=== PATIENT | male | born 1980 | race African-American/Black ===

== ENCOUNTER 2017-12-11 12:55 | Emergency (ER) | payer OTHER ==
[2017-12-11 13:22] VITALS: BP 132/87
[2017-12-11] MEDS ORDERED: KETOROLAC TROMETHAMINE INJ/PF 30 MG/1 ML SDV IM ONE (13:56)
[2017-12-11] MEDS ORDERED: DEXAMETHASONE SOD PHOS INJ 10 MG/1 ML VIAL IM ONE (13:56)
--- NOTE | 2017-12-11 14:24 | ER Document Report ---
ED Neck/Back Problem - General Chief Complaint: Back Pain Stated Complaint: BACK PAIN Time Seen by Provider: 12/11/17 13:44 Mode of Arrival: Ambulatory Information source: Patient Notes: 37-year-old male presents to ED for complaint of low back pain. He states the pain started on after he picked up a heavy piece of furniture at work. He denies any loss of control of bowel or bladder. Denies any urinary symptoms. He is able to ambulate with a even steady gait. He is alert and oriented pupils equal and react to light speaking in full even sentences. TRAVEL OUTSIDE OF THE [place] IN LAST 30 DAYS: No - HPI Patient complains to provider of: Lower back Onset: Last week Where: Work - Onset: Sudden Timing: Still present Quality of pain: Achy, Sharp Severity: Severe Pain Level: 5 Context: Lifting Recent injury: Possibly Associated symptoms: Like prior neck/back pain, Lower back pain. denies: Incontinence, Motor loss, Numbness/tingling, Radiation to arm, Radiation to chest, Radiation to leg, Sensory loss, Unable to urinate, Upper back pain Exacerbated by: Movement of trunk, Sitting position Relieved by: Nothing Similar symptoms previously: Yes Recently seen / treated by doctor: No - Related Data Allergies/Adverse Reactions: No Known Allergies Allergy (Verified 12/11/17 12:58) Past Medical History - General Information source: Patient - Social History Smoking Status: Current Every Day Smoker Cigarette use (# per day): Yes - 6 or 7 cigarettes a day Chew tobacco use (# tins/day): No Smoking Education Provided: Yes - 4 min Frequency of alcohol use: Heavy - 6 pack a day Drug Abuse: Marijuana Lives with: Friend Family History: Reviewed & Not Pertinent Patient has suicidal ideation: No Patient has homicidal ideation: No - Past Medical History Cardiac Medical History: Reports: None Pulmonary Medical History: Reports: None EENT Medical History: Reports: None Neurological Medical History: Reports: None Endocrine Medical History: Reports: None Renal/ Medical History: Reports: None Malignancy Medical History: Reports None GI Medical History: Reports: None Musculoskeltal Medical History: Reports None Skin Medical History: Reports None Psychiatric Medical History: Reports: None Traumatic Medical History: Reports: None Infectious Medical History: Reports: None Surgical Hx: Negative Past Surgical History: Reports: None - Immunizations Immunizations up to date: Yes Hx Diphtheria, Pertussis, Tetanus Vaccination: Yes Review of Systems - Review of Systems Constitutional: No symptoms reported EENT: No symptoms reported Cardiovascular: No symptoms reported Respiratory: No symptoms reported Gastrointestinal: No symptoms reported Genitourinary: No symptoms reported Male Genitourinary: No symptoms reported Musculoskeletal: Back pain, Muscle pain, Muscle stiffness Skin: No symptoms reported Hematologic/Lymphatic: No symptoms reported Neurological/Psychological: No symptoms reported -: Yes All other systems reviewed and negative Physical Exam - Vital signs Vitals: Temp Pulse Resp BP Pulse Ox 98.7 F 93 14 132/87 H 96 12/11/17 13:18 12/11/17 13:18 12/11/17 13:18 12/11/17 13:18 12/11/17 13:18 Interpretation: Normal - General General appearance: Appears well, Alert - HEENT Head: Normocephalic, Atraumatic Eyes: Normal Pupils: PERRL - Respiratory Respiratory status: No respiratory distress Chest status: Nontender Breath sounds: Normal Chest palpation: Normal - Cardiovascular Rhythm: Regular Heart sounds: Normal auscultation Murmur: No - Abdominal Inspection: Normal Distension: No distension Bowel sounds: Normal Tenderness: Nontender Organomegaly: No organomegaly - Back Back: Normal, Tender, Vertebra tenderness. No: Deformity/step-off, CVA tenderness, Scars, Scoliosis, Wounds - Extremities General upper extremity: Normal inspection, Nontender, Normal color, Normal ROM , Normal temperature General lower extremity: Normal inspection, Nontender, Normal color, Normal ROM , Normal temperature, Normal weight bearing. No: Angela's sign - Neurological Neuro grossly intact: Yes Cognition: Normal Orientation: AAOx4 [place] Coma Scale Eye Opening: Spontaneous [place] Coma Scale Verbal: Oriented [place] Coma Scale Motor: Obeys Commands [place] Coma Scale Total: 15 Speech: Normal Motor strength normal: LUE, RUE, LLE, RLE Sensory: Normal - Psychological Associated symptoms: Normal affect, Normal mood - Skin Skin Temperature: Warm Skin Moisture: Dry Skin Color: Normal Course - Re-evaluation Re-evalutation: 12/11/17 14:25 After performing a Medical Screening Examination, I estimate there is LOW risk for EXPANDING OR RUPTURED ABDOMINAL AORTIC ANEURYSM, CAUDA EQUINA SYNDROME, EPIDURAL MASS LESION, or HERNIATED DISK CAUSING SEVERE SPINAL STENOSIS, thus I consider the discharge disposition reasonable. I have reevaluated this patient multiple times and no significant life threatening changes are noted. The patient and I have discussed the diagnosis and risks, and we agree with discharging home and close follow-up. We also discussed returning to the Emergency Department immediately if new or worsening symptoms occur with the understanding that symptoms and presentations can change. We have discussed the symptoms which are most concerning (e.g., saddle anesthesia, urinary or bowel incontinence or retention, changing or worsening pain) that necessitate immediate return. - Vital Signs Vital signs: Temp Pulse Resp BP Pulse Ox 98.7 F 93 14 132/87 H 96 12/11/17 13:18 12/11/17 13:18 12/11/17 13:18 12/11/17 13:18 12/11/17 13:18 - Diagnostic Test Radiology reviewed: Image reviewed, Reports reviewed Discharge - Discharge Clinical Impression: Low back pain Qualifiers: Chronicity: acute Back pain laterality: bilateral Sciatica presence: without sciatica Qualified Code(s): M54.5 - Low back pain HTN (hypertension) Qualifiers: Hypertension type: unspecified Qualified Code(s): I10 - Essential (primary) hypertension Condition: Stable Disposition: HOME, SELF-CARE Instructions: Family Physicians / Practices Additional Instructions: LOW BACK PAIN: Three out of every four people will have an episode of disabling back pain during their lifetime. Most commonly the pain is due to straining of the muscles and ligaments in the low back. Usual treatment includes: (1) Rest on a firm surface. Avoid lying on your stomach. (2) Ice pack the painful area. After a few days, gentle heat may be used intermittently to relax the area, or ice packs can be continued. (3) Medication may be needed -- muscle relaxers and antiinflammatory medicines are commonly used. (4) As the back improves, exercises are prescribed to strengthen the back and abdominal muscles. Your doctor will advise you on the proper care for your back at each stage in your recovery. You may be better in a few days -- or healing may take several weeks. If new symptoms of a "herniated disc" (radiation of pain, numbness, or tingling down the back of the leg or weakness in the leg) occur, you should be re-examined. Further testing may be necessary. Toradol Injection You have been given an injection of ketorolac tromethamine (Toradol). This is an excellent, safe drug for pain control. It also has potent antiinflammatory action. You should have significant pain relief within about one hour. Toradol is not addicting and is non-sedating. It does not interfere with driving or work. Call or return if you develop itching, hives, shortness of breath, or rash. STEROID MEDICATION: You have been given an injection of medicine of the cortisone/steroid class. This medication is used to control inflammation or allergy. It is often continued as a pill for a short period of time, until the acute process subsides. There are usually no side effects from short-term use of cortisone-like medications. Some persons feel an increased sense of well-being and are not sleepy at bedtime. Long-term use of cortisone medications is best avoided, unless required for a severe condition. If your condition does not remit, or relapses after the course of corticosteroid medication, you should consult your physician. MUSCLE RELAXERS: Muscle relaxing medications are usually prescribed for acute muscle spasm or injury to the neck and back. They are often combined with antiinflammatory pain medication for increased relief. You may stop the muscle relaxer when the pain and stiffness have improved. Start the medication again if spasms recur. Muscle relaxers may cause drowsiness, especially with the first dose. Do not operate machinery or drive while under the effects of the medication. Most muscle relaxers last up to 24 hours. Do not combine the medication with alcohol. ICE PACKS: Apply ice packs frequently against the painful area. Many different schedules are recommended, such as "20 minutes on, 20 minutes off" or "one hour ice, two hours rest." If you need to work, you may need to go longer between ice treatments. You should plan to have the area ice packed AT LEAST one fourth of the time. The ice should be applied over the wrap, tape, or splint, or over a layer of cloth -- not directly against the skin. Some ice bags have a built-in cloth and can be put directly on the skin. WARM PACKS: After approximately two days, apply gentle heat (such as a heating pad or hot water bottle) for about 20 to 30 minutes about every two hours -- at least four times daily. Warmth and elevation will help you make a more rapid recovery , and will ease the pain considerably. Do not use HOT heat, and never apply heat for longer than 30 minutes. The continuous heat can invisibly damage skin and muscles -- even when no burn is seen on the surface. Damaged muscles can make you MORE sore. Stretching Exercises for the Back The physician has recommended that you begin stretching exercises for your back. These are often used even while the back is painful. However, you should notify the physician if the activities seem to increase your pain. PELVIC TILT: Lie flat on your back with knees bent. Tighten your stomach and buttock muscles so it flattens your lower back against the floor. Hold 10 seconds. Repeat 10 times, twice daily. KNEE RAISE: Lying on the back with knees bent, raise one knee to your chest, then the other. Hold both knees against the chest 10 seconds, then lower one knee at a time. Repeat 10 times, twice daily. PARTIAL TRUNK RAISE: Lie face down, arms at your sides. Keeping your waist on the floor, use your arms raise your chest up. Support yourself on your elbows for 30 seconds. Repeat twice daily, increasing the time to two minutes as you recover. FOLLOW-UP CARE: If you have been referred to a physician for follow-up care, call the physician s office for an appointment as you were instructed or within the next two days. If you experience worsening or a significant change in your symptoms, notify the physician immediately or return to the Emergency Department at any time for re-evaluation. Prescriptions: Cyclobenzaprine HCl [Flexeril 10 mg Tablet] 10 mg PO TIDP PRN #15 tab PRN Reason: Forms: Elevated Blood Pressure, Smoking Cessation Education, Return to Work
--- NOTE | 2017-12-11 14:27 | RADIOLOGY REPORT (SQ) ---
EXAM DESCRIPTION: L SPINE WHOLE COMPLETED DATE/TIME: 12/11/2017 2:15 pm REASON FOR STUDY: low back pain COMPARISON: None. NUMBER OF VIEWS: Five views including obliques. TECHNIQUE: AP, lateral, oblique, and sacral radiographic images acquired of the lumbar spine. LIMITATIONS: None. FINDINGS: MINERALIZATION: Normal. SEGMENTATION: Normal. No transitional anatomy. ALIGNMENT: Very mild convex leftward lumbar curvature VERTEBRAE: Maintained height. No fracture or worrisome bone lesion. DISCS: Preserved height. No significant osteophytes or end plate irregularity. POSTERIOR ELEMENTS: Pedicles and facets are intact. No pars defect or posterior arch defects. Mild bilateral facet arthropathy at L5-S1 HARDWARE: None in the spine. PARASPINAL SOFT TISSUES: Normal. PELVIS: Not in the field of view. SI joints are unremarkable OTHER: No other significant finding. IMPRESSION: L5-S1 facet arthropathy. TECHNICAL DOCUMENTATION: JOB ID: [id number] [employer]- All Rights Reserved Reading location - IP/workstation name: [email or web address]
== END 2017-12-11 15:09 | disposition home or self-care (01) ==
LOC: ER 12:55
DX: M54.5 Low back pain (principal); X50.0XXA Overexertion from strenuous movement or load, initial encounter; Y99.0 Civilian activity done for income or pay; I10 Essential (primary) hypertension; F17.210 Nicotine dependence, cigarettes, uncomplicated; Z71.6 Tobacco abuse counseling
CPT/HCPCS: 99283; 96372; 72110; J1885; J1100

== ENCOUNTER 2018-04-04 16:58 | Emergency (ER) | payer OTHER ==
[2018-04-04] MEDS ORDERED: NORMAL SALINE 1000 ML 1,000 ML IV ONE (17:56)
[2018-04-04] MEDS ORDERED: PANTOPRAZOLE SODIUM 40 MG VIAL IV ONE (17:56)
--- NOTE | 2018-04-04 19:19 | ER Document Report ---
ED General - General Chief Complaint: Bloody Stools Stated Complaint: ABDOMEN PAIN Time Seen by Provider: 04/04/18 17:55 TRAVEL OUTSIDE OF THE [place] IN LAST 30 DAYS: No - HPI Notes: 37-year-old male presents with blood in stools for the past 3 days. He states it is dark blood. He has had upper abdominal pain. He admits to drinking about a sixpack of beers a day. Denies history of ulcers. Has had hemorrhoids in the past with bleeding in July. Denies prior colonoscopy or endoscopy. Denies excessive NSAID use. Was seen at the [place] today and sent to the emergency department for further evaluation. Denies nausea, vomiting, fever, lightheadedness or syncopal episodes. - Related Data Allergies/Adverse Reactions: No Known Allergies Allergy (Verified 04/04/18 16:58) Past Medical History - Social History Smoking Status: Current Every Day Smoker Frequency of alcohol use: daily Drug Abuse: None Family History: Reviewed & Not Pertinent Patient has suicidal ideation: No Patient has homicidal ideation: No Renal/ Medical History: Denies: Hx Peritoneal Dialysis - Immunizations Immunizations up to date: Yes Hx Diphtheria, Pertussis, Tetanus Vaccination: Yes Review of Systems - Review of Systems Notes: Constitutional: Negative for fever. HENT: Negative for sore throat. Eyes: Negative for visual changes. Cardiovascular: Negative for chest pain. Respiratory: Negative for shortness of breath. Gastrointestinal: Positive for abdominal pain and rectal bleeding. Negative for nausea, vomiting, diarrhea Genitourinary: Negative for dysuria. Musculoskeletal: Negative for back pain. Skin: Negative for rash. Neurological: Negative for headaches, weakness or numbness. 10 point ROS negative except as marked above and in HPI. Physical Exam - Vital signs Vitals: Temp Pulse Resp BP Pulse Ox 98.0 F 81 14 119/72 100 04/04/18 17:05 04/04/18 17:05 04/04/18 17:05 04/04/18 17:04/04/18 17:05 - Notes Notes: PHYSICAL EXAMINATION: GENERAL: Well-appearing, well-nourished and in no acute distress. HEAD: Atraumatic, normocephalic. EYES: Pupils equal round and reactive to light, extraocular movements intact, conjunctiva are normal. ENT: nares patent, oropharynx clear without exudates. Moist mucous membranes. NECK: Normal range of motion, supple without lymphadenopathy LUNGS: Breath sounds clear to auscultation bilaterally and equal. No wheezes rales or rhonchi. HEART: Regular rate and rhythm, no chest wall tenderness ABDOMEN: Soft, mild left upper and lower quadrant tenderness, normoactive bowel sounds. No guarding, no rebound. No masses appreciated. EXTREMITIES: Normal range of motion, no pitting or edema. No cyanosis. NEUROLOGICAL: Cranial nerves grossly intact. Normal speech, normal gait. Normal sensory and motor exams. PSYCH: Normal mood, normal affect. SKIN: Warm, Dry, normal turgor, no rashes or lesions noted. - Rectal Tenderness: Yes Stool: Heme negative Hemorrhoids: Internal Prostate: Normal Course - Re-evaluation Re-evalutation: 04/04/18 22:05 Hemoccult negative. Labs unremarkable with mild anemia. Advised to avoid alcohol. Will place on Nexium. At this time will discharge with return precautions and follow-up recommendations. Verbal discharge instructions given a the bedside and opportunity for questions given. Medication warnings reviewed. Patient is in agreement with this plan and has verbalized understanding of return precautions and the need for primary care follow-up in the next 24-72 hours. Voice dictation software was used. Chart was reviewed, but errors may exist. - Vital Signs Vital signs: Temp Pulse Resp BP Pulse Ox 98.0 F 81 14 119/72 100 04/04/18 17:05 04/04/18 17:05 04/04/18 17:05 04/04/18 17:05 04/04/18 17:05 - Laboratory Result Diagrams: 04/04/18 19:41 04/04/18 19:41 Laboratory results interpreted by me: 04/04/18 04/04/18 19:41 19:41 Hgb 13.3 L Total Protein 8.3 H Discharge - Discharge Clinical Impression: Rectal bleed Hemorrhoid Qualifiers: Hemorrhoid type: unspecified Qualified Code(s): K64.9 - Unspecified hemorrhoids Condition: Stable Disposition: HOME, SELF-CARE Instructions: Hemorrhoids ([facility]), Rectal Bleeding, Unclear Cause ([facility]) Additional Instructions: Avoid alcohol and NSAIDs as this will worsen your bleeding. Follow-up with GI for further evaluation. Return for worsening or concerning symptoms. Prescriptions: Esomeprazole Mag Trihydrate [Nexium] 40 mg PO DAILY #20 capsule. Hydrocortisone Acetate [Anusol Hc 25 mg Supp.rect] 1 supp.rect NE BID #14 supp.rect Referrals: KATIA RODRÍGUEZ NP [Primary Care Provider] - Follow up in 3-5 days RUTH KC MD [ACTIVE STAFF] - Follow up as needed
[2018-04-04 20:08] LABS: HEMATOCRIT 39.1 % (37.9-51.0); HEMOGLOBIN 13.3 g/dL (13.5-17.0); MEAN CORPUSCULAR HEMOGLOBIN 29.6 pg (27.0-33.4); MEAN CORPUSCULAR HGB CONC 34.1 g/dL (32.0-36.0); MEAN CORPUSCULAR VOLUME 87 fl (80-97); PLATELET COUNT 267 10^3/uL (150-450); RED BLOOD COUNT 4.49 10^6/uL (4.35-5.55); RED CELL DISTRIBUTION WIDTH 12.8 % (11.5-14.0)
[2018-04-04 20:23] LABS: ALANINE AMINOTRANSFERASE 31 U/L (21-72); ALBUMIN 4.7 g/dL (3.5-5.0); ALCOHOL 221 mg/dL (NONE DETECTED); ALKALINE PHOSPHATASE 56 U/L (38-126); ANION GAP 11 (5-19); ASPARTATE AMINO TRANSFERASE 57 U/L (17-59); BILIRUBIN,DIRECT 0.3 mg/dL (0.0-0.4); BILIRUBIN,TOTAL 0.5 mg/dL (0.2-1.3); BLOOD UREA NITROGEN 9 mg/dL (7-20); CALCIUM 9.2 mg/dL (8.4-10.2); CARBON DIOXIDE 26 mmol/L (22-30); CHLORIDE 106 mmol/L (98-107); GLUCOSE 95 mg/dL (75-110); LIPASE 57.4 U/L (23-300); POTASSIUM 4.6 mmol/L (3.6-5.0); SODIUM 142.9 mmol/L (137-145); TOTAL PROTEIN 8.3 g/dL (6.3-8.2)
[2018-04-04 20:27] LABS: ABSOLUTE LYMPHOCYTES# (MANUAL) 2.5 10^3/uL (0.5-4.7); ABSOLUTE MONOCYTES # (MANUAL) 0.5 10^3/uL (0.1-1.4); ABSOLUTE NEUTROPHILS# (MANUAL) 2.8 10^3/uL (1.7-8.2); BASOPHILS % (MANUAL) 2 % (0-2); EOSINOPHILS % (MANUAL) 2 % (0-6); LYMPHOCYTES % (MANUAL) 38 % (13-45); MONOCYTES % (MANUAL) 8 % (3-13); SEGMENTED NEUTROPHILS % (MAN) 46 % (42-78); TOTAL CELLS COUNTED 100
[2018-04-04 20:28] LABS: PLATELET COMMENT ADEQUATE; RBC MORPHOLOGY COMMENT NORMO-CYTIC/CHROMIC
[2018-04-04 22:08] VITALS: BP 114/77
== END 2018-04-04 22:49 | disposition home or self-care (01) ==
LOC: ER 16:58
DX: K62.5 Hemorrhage of anus and rectum (principal); K64.9 Unspecified hemorrhoids; D64.9 Anemia, unspecified; R10.10 Upper abdominal pain, unspecified; F17.200 Nicotine dependence, unspecified, uncomplicated
CPT/HCPCS: 99285; 96361; 96374; 86900; 86901; 36415; 86850; 80307; 83690; 85025; 82272; 80053; S0164; J7030

== ENCOUNTER 2018-04-17 10:19 | Emergency (ER) | payer OTHER ==
[2018-04-17] MEDS ORDERED: CEFTRIAXONE 2 GM/D5W RTU 2 GM/50 ML RTUPB IV ONE (10:38)
[2018-04-17] MEDS ORDERED: NORMAL SALINE 1000 ML 1,000 ML IV ONE (10:38)
[2018-04-17] MEDS ORDERED: NORMAL SALINE 1000 ML 1,000 ML IV PRN (10:38)
[2018-04-17] MEDS ORDERED: KETOROLAC TROMETHAMINE INJ/PF 30 MG/1 ML SDV IV ONE (10:38)
--- NOTE | 2018-04-17 10:41 | ER Document Report ---
ED Medical Screen (RME) - General Chief Complaint: Arm Pain Stated Complaint: RIGHT ARM PAIN, SWELLING Time Seen by Provider: 04/17/18 10:37 Notes: 37 years old male who woke up with right arm swelling and pain. Before he went to bed he did not have any symptoms according to him. But he was drinking beer yesterday. Denies any numbness tingling sensation. But has diffuse pain over both upper arm and forearm and elbow. Had difficulty in flexing and extending the elbow. Denies any known insect bites. On examination right arm the swelling starts junction of the upper one third and lower two third of the arm extending all the way to the elbow to the proximal portion of the forearm two third of the way. The entire arm is very warm and tender to touch. There is a small opening noted on the lateral side of the forearm. Neurovascular function distally appeared to be intact. TRAVEL OUTSIDE OF THE [place] IN LAST 30 DAYS: No - Related Data Allergies/Adverse Reactions: No Known Allergies Allergy (Verified 04/17/18 10:20) Past Medical History - Social History Chew tobacco use (# tins/day): No Frequency of alcohol use: Heavy Drug Abuse: None Renal/ Medical History: Denies: Hx Peritoneal Dialysis Psychiatric Medical History: Reports: Hx Depression - Immunizations Immunizations up to date: Yes Hx Diphtheria, Pertussis, Tetanus Vaccination: Yes Physical Exam - Vital signs Vitals: Temp Pulse Resp BP Pulse Ox 98.6 F 100 16 123/83 97 04/17/18 10:24 04/17/18 10:24 04/17/18 10:24 04/17/18 10:24 04/17/18 10:24 Course - Vital Signs Vital signs: Temp Pulse Resp BP Pulse Ox 98.6 F 100 16 123/83 97 04/17/18 10:24 04/17/18 10:24 04/17/18 10:24 04/17/18 10:24 04/17/18 10:24 Doctor's Discharge - Discharge Referrals: KATIA RODRÍGUEZ NP [Primary Care Provider] - Follow up as needed
[2018-04-17 11:37] LABS: ABSOLUTE EOSINOPHILS # (AUTO) 0.1 10^3/uL (0.0-0.6); ABSOLUTE LYMPHOCYTES (AUTO) 1.1 10^3/uL (0.5-4.7); ABSOLUTE MONOCYTES (AUTO) 0.7 10^3/uL (0.1-1.4); ABSOLUTE NEUT (AUTO) 7.1 10^3/uL (1.7-8.2); BASOPHILS % (AUTO) 0.3 % (0-2); EOSINOPHILS % (AUTO) 1.3 % (0-6); HEMATOCRIT 41.5 % (37.9-51.0); HEMOGLOBIN 14.3 g/dL (13.5-17.0); LYMPHOCYTES % (AUTO) 11.6 % (13-45); MEAN CORPUSCULAR HEMOGLOBIN 29.9 pg (27.0-33.4); MEAN CORPUSCULAR HGB CONC 34.6 g/dL (32.0-36.0); MEAN CORPUSCULAR VOLUME 86 fl (80-97); MONOCYTES % (AUTO) 8.1 % (3-13); PLATELET COUNT 225 10^3/uL (150-450); RED CELL DISTRIBUTION WIDTH 12.6 % (11.5-14.0); SEGMENTED NEUTROPHILS % (AUTO) 78.7 % (42-78); TOTAL CELLS COUNTED % (AUTO) 100 %; WHITE BLOOD COUNT 9.1 10^3/uL (4.0-10.5)
[2018-04-17] MEDS ORDERED: CEFTRIAXONE SODIUM 2,000 MG in NORMAL SALINE 100 ML IV ONE (12:00)
[2018-04-17 12:23] LABS: ERYTHROCYTE SEDIMENTATION RATE 2 mm/hr (0-15)
[2018-04-17 12:34] LABS: ALANINE AMINOTRANSFERASE 32 U/L (21-72); ALBUMIN 4.9 g/dL (3.5-5.0); ALKALINE PHOSPHATASE 68 U/L (38-126); ANION GAP 11 (5-19); ASPARTATE AMINO TRANSFERASE 42 U/L (17-59); BILIRUBIN,DIRECT 0.5 mg/dL (0.0-0.4); BILIRUBIN,TOTAL 0.8 mg/dL (0.2-1.3); BLOOD UREA NITROGEN 14 mg/dL (7-20); CALCIUM 9.5 mg/dL (8.4-10.2); CARBON DIOXIDE 24 mmol/L (22-30); CHLORIDE 107 mmol/L (98-107); GLUCOSE 85 mg/dL (75-110); POTASSIUM 4.3 mmol/L (3.6-5.0); SODIUM 141.8 mmol/L (137-145); TOTAL PROTEIN 8.6 g/dL (6.3-8.2)
[2018-04-17 12:35] LABS: C-REACTIVE PROTEIN < 5.0 mg/L (<10.0)
[2018-04-17] MEDS ORDERED: METHYLPREDNISOLONE INJ 125 MG/2 ML SDV IV ONE (16:30)
--- NOTE | 2018-04-17 19:21 | ER Document Report ---
ED General - General Chief Complaint: Arm Pain Stated Complaint: RIGHT ARM PAIN, SWELLING Time Seen by Provider: 04/17/18 10:37 Mode of Arrival: Ambulatory Information source: Patient, Relative Notes: 37-year-old male with depression presents with complaint of right arm pain and swelling that began this morning. Patient states that he went to bed last night without any issues and awoke with a very swollen very painful arm. He denies any known injury. His presented 10 minutes after I spoke to the patient and tells me that the patient was drinking heavily last night and fell off the bed where she left him on the floor until the morning. She states that he did land onto his right side. Patient denies any headache, nausea, vomiting , IV drug use, recent IV insertion. also states that they both were bitten by yellow jackets multiple times in the upper extremity yesterday. TRAVEL OUTSIDE OF THE [place] IN LAST 30 DAYS: No - HPI Onset: This morning Onset/Duration: Gradual, Persistent, Worse Quality of pain: Fullness, Throbbing Severity: Moderate Associated symptoms: denies: Chest pain, Productive cough, Fever, Nausea, Vomiting, Shortness of breath, Weakness Exacerbated by: Movement Relieved by: Denies Similar symptoms previously: No Recently seen / treated by doctor: No - Related Data Allergies/Adverse Reactions: No Known Allergies Allergy (Verified 04/17/18 10:20) Past Medical History - General Information source: Patient - Social History Smoking Status: Current Every Day Smoker Chew tobacco use (# tins/day): No Frequency of alcohol use: Heavy Drug Abuse: None Lives with: Spouse/Significant other Family History: Reviewed & Not Pertinent Patient has suicidal ideation: No Patient has homicidal ideation: No Renal/ Medical History: Denies: Hx Peritoneal Dialysis Psychiatric Medical History: Reports: Hx Depression - Immunizations Immunizations up to date: Yes Hx Diphtheria, Pertussis, Tetanus Vaccination: Yes Review of Systems - Review of Systems Notes: REVIEW OF SYSTEMS: CONSTITUTIONAL : Denies fever, chills, or sweats. Denies recent illness. Denies weight loss, recent hospitalizations. EENT: Denies visual changes, eye pain. Denies sore throat, oral lesions, difficulty swallowing. CARDIOVASCULAR: Denies chest pain. Denies palpitations. Denies lower extremity edema. RESPIRATORY: Denies cough. Denies shortness of breath, wheezing. GASTROINTESTINAL: Denies abdominal pain or distention. Denies nausea, vomiting , or diarrhea. Denies blood in vomitus, stools, or per rectum. Denies black, tarry stools. Denies constipation. GENITOURINARY: Denies difficulty urinating, painful urination, frequency, blood in urine, testicular pain or penile discharge. MUSCULOSKELETAL: Denies back or neck pain or stiffness. SKIN: Denies rash, lesions or sores. HEMATOLOGIC : Denies easy bruising or bleeding. LYMPHATIC: Denies swollen glands. NEUROLOGICAL: Denies confusion or altered mental status. Denies loss of consciousness. Denies dizziness or lightheadedness. Denies headache. Denies weakness or paralysis. Denies problems difficulty with ambulation, slurred speech. Denies sensory loss, numbness, or tingling. Denies seizures. PSYCHIATRIC: Denies anxiety or stress. Denies depression, suicidal ideation, or Physical Exam - Vital signs Vitals: Temp Pulse Resp BP Pulse Ox 98.6 F 100 16 123/83 97 04/17/18 10:24 04/17/18 10:24 04/17/18 10:24 04/17/18 10:24 04/17/18 10:24 Interpretation: Normal. No: Hypertensive, Febrile - Notes Notes: PHYSICAL EXAMINATION: GENERAL: Well-appearing, well-nourished and in no acute distress. HEAD: Atraumatic, normocephalic. EYES: Pupils equal round and reactive to light, extraocular movements intact, sclera anicteric, conjunctiva are normal. ENT: Nares patent, oropharynx clear without exudates. Moist mucous membranes. NECK: Normal range of motion, supple without lymphadenopathy LUNGS: Breath sounds clear to auscultation bilaterally and equal. No wheezes rales or rhonchi. HEART: Regular rate and rhythm without murmurs ABDOMEN: Soft, nontender, nondistended abdomen. No guarding, no rebound. No masses appreciated. Musculoskeletal: Swelling of the right forearm and right bicep. Compartment soft. Radial pulse intact. Cap refill less than 2 seconds. No obvious deformity. NEUROLOGICAL: Cranial nerves grossly intact. Normal speech, normal gait. Normal sensory, motor exams PSYCH: Normal mood, normal affect. SKIN: Mild erythema to the upper extremity Course - Re-evaluation Re-evalutation: Laboratory 04/17/18 04/17/18 04/17/18 11:12 11:12 11:12 WBC 9.1 RBC 4.80 Hgb 14.3 Hct 41.5 MCV 86 MCH 29.9 MCHC 34.6 RDW 12.6 Plt Count 225 Seg Neutrophils % 78.7 H Lymphocytes % 11.6 L Monocytes % 8.1 Eosinophils % 1.3 Basophils % 0.3 Absolute Neutrophils 7.1 Absolute Lymphocytes 1.1 Absolute Monocytes 0.7 Absolute Eosinophils 0.1 Absolute Basophils 0.0 ESR 2 D-Dimer 0.42 Sodium 141.8 Potassium 4.3 Chloride 107 Carbon Dioxide 24 Anion Gap 11 BUN 14 Creatinine 0.84 Est GFR ( Amer) > 60 Est GFR (Non-Af Amer) > 60 Glucose 85 Lactic Acid Calcium 9.5 Total Bilirubin 0.8 Direct Bilirubin 0.5 H Neonat Total Bilirubin Not Reportable Neonat Direct Bilirubin Not Reportable Neonat Indirect Bili Not Reportable AST 42 ALT 32 Alkaline Phosphatase 68 Creatine Kinase C-Reactive Protein < 5.0 Total Protein 8.6 H Albumin 4.9 04/17/18 04/17/18 04/17/18 11:12 11:12 20:53 WBC RBC Hgb Hct MCV MCH MCHC RDW Plt Count Seg Neutrophils % Lymphocytes % Monocytes % Eosinophils % Basophils % Absolute Neutrophils Absolute Lymphocytes Absolute Monocytes Absolute Eosinophils Absolute Basophils ESR D-Dimer Sodium Potassium Chloride Carbon Dioxide Anion Gap BUN Creatinine Est GFR ( Amer) Est GFR (Non-Af Amer) Glucose Lactic Acid 1.2 Calcium Total Bilirubin Direct Bilirubin Neonat Total Bilirubin Neonat Direct Bilirubin Neonat Indirect Bili AST ALT Alkaline Phosphatase Creatine Kinase 514 H 425 H C-Reactive Protein Total Protein Albumin Venous Doppler Study 04/17/18 00:00 IMPRESSION: NO EVIDENCE DVT OR SVT RIGHT ARM. Upper Extremity CT 04/17/18 17:34 IMPRESSION: Arterial flow is seen to the wrist. There is marked subcutaneous edema. Upper Extremity Ultrasound 04/17/18 17:36 IMPRESSION: NORMAL RIGHT UPPER EXTREMITY ARTERIAL DOPPLER. Forearm X-Ray 04/17/18 17:42 IMPRESSION: Marked soft tissue swelling. No osseous abnormality. Shoulder X-Ray 04/17/18 17:42 IMPRESSION: NEGATIVE STUDY OF THE RIGHT SHOULDER. NO RADIOGRAPHIC EVIDENCE OF ACUTE INJURY. 04/17/18 19:[address] Young orthopedic surgeon snuff container inspector regarding the patient's unusual presentation of arm swelling. We did discuss negative ultrasound, negative x-rays. He recommends if CAT scan is normal to have patient follow up immediately in his office tomorrow. 04/17/18 23:40 04/17/18 23:40 I spoke at length with the patient and his regarding the importance of follow-up with orthopedic surgery tomorrow.37-year-old male with history of depression presents with complaint of right arm pain and swelling that began this morning. states that the patient was heavily drinking and fell out of bed onto his right side where she left him overnight. Upon arrival vital signs stable. Patient does not appear toxic or dehydrated. He is in no acute distress. There is market swelling of the right arm when compared to the left. Ultrasound was obtained and negative for DVT. X-rays of the forearm and shoulder were also obtained and showed no acute injury. Forearm did show marketed soft tissue swelling. Patient has full range of motion of this arm. He does have some mild erythema on the inner upper extremity. I will continue the antibiotics that were started in triage. Patient did receive Dilaudid during his ED course. Lab and imaging findings were discussed with the patient and his . Patient was found to have a mildly elevated CK level which on repeat is downtrending. His compartments remain soft. I urged the patient and his that he should be seen by orthopedic surgery tomorrow or return immediately to the emergency room if pain worsened. Patient provided the opportunity to ask questions, and express concerns. Discharge instructions discussed. Patient is agreeable with discharge home. Return indications explained and discussed with the patient who displays understanding. Patient encouraged to return to the emergency department immediately with any concerns. 04/18/18 01:26 04/18/18 01:26 - Vital Signs Vital signs: Temp Pulse Resp BP Pulse Ox 97.7 F 73 18 134/79 H 92 04/17/18 23:41 04/17/18 23:41 04/17/18 23:41 04/17/18 23:41 04/17/18 23:41 - Laboratory Result Diagrams: 04/17/18 11:12 04/17/18 11:12 Laboratory results interpreted by me: 04/17/18 04/17/18 04/17/18 11:12 11:12 11:12 Seg Neutrophils % 78.7 H Lymphocytes % 11.6 L Direct Bilirubin 0.5 H Creatine Kinase 514 H Total Protein 8.6 H 04/17/18 20:53 Seg Neutrophils % Lymphocytes % Direct Bilirubin Creatine Kinase 425 H Total Protein - Diagnostic Test Radiology reviewed: Image reviewed, Reports reviewed Discharge - Discharge Clinical Impression: Swelling of upper extremity, Elevated CK Allergic reaction Qualifiers: Encounter type: initial encounter Qualified Code(s): T78.40XA - Allergy, unspecified, initial encounter Cellulitis Qualifiers: Site of cellulitis: extremity Site of cellulitis of extremity: upper extremity Laterality: right Qualified Code(s): L03.113 - Cellulitis of right upper limb Condition: Good Disposition: HOME, SELF-CARE Instructions: Arm Pain, Nonspecific ([facility]), Cellulitis ([facility]) Additional Instructions: You do not have evidence of a fracture on today's xrays. Your pain is likely to do soft tissue swelling and inflammation. This can last up to 6 weeks before completely resolving. You should continue to apply ice to the area regularly, keep the affected area elevated, and take ibuprofen 600mg every 6 hours as needed for pain. Please return if you have worsening pain, weakness, numbness, notice increasing redness or swelling to the area, develop a fever, or have any other symptoms that are concerning to you. Please complete your antibiotic course and follow-up with orthopedic surgeon Dr. Young tomorrow. Most prescribed medications have multiple side effects. The safest thing to do is when filling your prescription please speak to your pharmacist regarding possible interactions with your normal home medications and over the counter medications such as Ibuprofen, Tylenol, Benadryl.. If you experience any symptoms that cause you discomfort or concern you should discontinue the medication immediately and return to the emergency room or call your primary care physician. Follow up with your physician tomorrow for further care or return to the ED IMMEDIATELY if symptoms worsen or new concerns occur. If you cannot afford to follow up with your primary care physician a list of low cost clinics have been provided at the end of your discharge papers as well. Prescriptions: Cephalexin Monohydrate [Keflex 500 mg Capsule] 500 mg PO BID 5 Days #20 capsule Oxycodone HCl/Acetaminophen [Percocet 5-325 mg Tablet] 1 tab PO Q6H PRN #15 tab PRN Reason: For Pain Scale 2-3 Sulfamethoxazole/Trimethoprim [Bactrim Ds Tablet] 1 each PO BID #20 tablet Referrals: KATIA RODRÍGUEZ NP [NO LOCAL MD] - Follow up as needed NORIS YOUNG DO [ACTIVE STAFF] - Follow up tomorrow
--- NOTE | 2018-04-17 19:23 | RADIOLOGY REPORT (SQ) ---
EXAM DESCRIPTION: ARTERIAL UPPER EXTREM UNILAT COMPLETED DATE/TIME: 04/17/2018 7:13 pm REASON FOR STUDY: right arm swelling COMPARISON: None. TECHNIQUE: Dynamic and static aguilar scale and color images acquired of the right upper extremity sharif saul. Additional selected spectral images recorded. Images saved to PACS. LIMITATIONS: None. FINDINGS: RIGHT UPPER EXTREMITY: Normal waveforms. No significant stenosis is seen. There is flow to the hand. IMPRESSION: NORMAL RIGHT UPPER EXTREMITY ARTERIAL DOPPLER. TECHNICAL DOCUMENTATION: JOB ID: [id number] [employer]- All Rights Reserved Reading location - IP/workstation name: [email or web address]
--- NOTE | 2018-04-17 19:24 | RADIOLOGY REPORT (SQ) ---
EXAM DESCRIPTION: FOREARM RIGHT COMPLETED DATE/TIME: 04/17/2018 7:13 pm REASON FOR STUDY: fall COMPARISON: None. NUMBER OF VIEWS: Two views. TECHNIQUE: Two radiographic images acquired of the right forearm, including elbow and wrist in at le ast one projection. LIMITATIONS: None. FINDINGS: MINERALIZATION: Normal. BONES: No acute fracture. No worrisome bone lesions. SOFT TISSUES: Marked soft tissue swelling in the proximal forearm. OTHER: No other significant finding. IMPRESSION: Marked soft tissue swelling. No osseous abnormality. TECHNICAL DOCUMENTATION: JOB ID: [id number] [employer]- All Rights Reserved Reading location - IP/workstation name: [email or web address]
--- NOTE | 2018-04-17 19:25 | RADIOLOGY REPORT (SQ) ---
EXAM DESCRIPTION: VENOUS UNILATERAL UPPER COMPLETED DATE/TIME: 04/17/2018 7:14 pm REASON FOR STUDY: UPPER ARM SWELLING COMPARISON: None. TECHNIQUE: Dynamic and static aguilar scale and color images acquired of the right arm venous system. S elected spectral images acquired with additional compression and augmentation maneuvers. The contrala teral subclavian vein and internal jugular vein were also imaged. Images stored on PACS. LIMITATIONS: None. FINDINGS: INTERNAL JUGULAR VEIN: Normal phasicity, compression, augmentation. No visualized echogeni c material on aguilar scale. No defects on color images. Comparison opposite side normal. SUBCLAVIAN VEIN: Normal compression, augmentation. No visualized echogenic material on aguilar scale. No defects on color images. AXILLARY VEIN: Normal compression, augmentation. No visualized echogenic material on aguilar scale. No d efects on color images. BRACHIAL VEIN: Normal compression, augmentation. No visualized echogenic material on aguilar scale. No d efects on color images. BASILIC VEIN: Normal compression, augmentation. No visualized echogenic material on aguilar scale. No de fects on color images. CEPHALIC VEIN: Normal compression, augmentation. No visualized echogenic material on aguilar scale. No d efects on color images. OTHER: No other significant finding. CONTRALATERAL SUBCLAVIAN VEIN AND INTERNAL JUGULAR VEIN: Normal phasicity, compression and augmentation. No visualized echogenic material on aguilar scale. No de fects on color images. IMPRESSION: NO EVIDENCE DVT OR SVT RIGHT ARM. TECHNICAL DOCUMENTATION: JOB ID: [id number] [employer]- All Rights Reserved Reading location - IP/workstation name: [email or web address]
--- NOTE | 2018-04-17 19:25 | RADIOLOGY REPORT (SQ) ---
EXAM DESCRIPTION: SHOULDER RIGHT 2 OR MORE VIEWS COMPLETED DATE/TIME: 04/17/2018 7:13 pm REASON FOR STUDY: fall COMPARISON: None. NUMBER OF VIEWS: Three views. TECHNIQUE: Internal rotation, external rotation, and Y view images acquired of the right shoulder. LIMITATIONS: None. FINDINGS: MINERALIZATION: Normal. BONES: No acute fracture or dislocation. No worrisome bone lesions. JOINTS: No dislocation. VISUALIZED LUNGS AND RIBS: No pneumothorax. No rib fracture. SOFT TISSUES: No radiopaque foreign body. OTHER: No other significant finding. IMPRESSION: NEGATIVE STUDY OF THE RIGHT SHOULDER. NO RADIOGRAPHIC EVIDENCE OF ACUTE INJURY. TECHNICAL DOCUMENTATION: JOB ID: [id number] [employer] All Rights Reserved Reading location - IP/workstation name: [email or web address]
[2018-04-17] MEDS ORDERED: HYDROMORPHONE HCL INJ/PF 2 MG/ML AMPULE IV ONE ×2 (19:35→19:37)
[2018-04-17] MEDS ORDERED: RINGERS SOLUTION,LACTATED 1,000 ML IV ONE (19:35)
--- NOTE | 2018-04-17 20:27 | RADIOLOGY REPORT (SQ) ---
EXAM DESCRIPTION: CT RT UPPER EXTREMITY WITH COMPLETED DATE/TIME: 04/17/2018 7:37 pm REASON FOR STUDY: swollen (CTA RUNOFF Per MD) COMPARISON: None. TECHNIQUE: Postcontrast axial imaging performed through the right upper extremity with reformatted c oronal and sagittal imaging windowed for bone and soft tissues. Images saved to PACS. 3D IMAGING: Were 3D images as MIP, SSD, or volume rendering performed at the work station? No All CT scanners at this facility use dose modulation, iterative reconstruction, and/or weight based d osing when appropriate to reduce radiation dose to as low as reasonably achievable (ALARA). [facility]: Dose Right [facility]: CareDose [facility]: Dose Right [facility]: Teradose 4D [facility]: BackTrack CONTRAST TYPE AND DOSE: contrast/concentration: Isovue 350.00 mg/ml; Total Contrast Delivered: 80.0 ml; Total Saline Delivered: 60.0 ml RENAL FUNCTION: BUN 14 creatinine 0.84 LIMITATIONS: None. RADIATION DOSE: CT Rad equipment meets quality standard of care and radiation dose reduction techniq ues were employed. CTDIvol: 2.7 - 30.2 mGy. DLP: 200 mGy-cm.mGy. FINDINGS: SOFT TISSUES: Marked soft tissue swelling with marked subcutaneous edema in the distal arm and the forearm. BONES: No acute fracture. No dislocation. MINERALIZATION: Normal. ENHANCEMENT: No abnormal enhancement. OTHER: Arterial flow was shown to the wrist. IMPRESSION: Arterial flow is seen to the wrist. There is marked subcutaneous edema. TECHNICAL DOCUMENTATION: JOB ID: [id number] Quality ID # [id number]: Final reports with documentation of one or more dose reduction techniques (e.g., Au tomated exposure control, adjustment of the mA and/or kV according to patient size, use of iterative reconstruction technique) 2010 [employer]- All Rights Reserved Reading location - IP/workstation name: [email or web address]
[2018-04-17] MEDS ORDERED: OXYCODONE-ACETAMINOPHEN 5-325 MG TABLET PO ONE (23:40)
[2018-04-18 00:03] VITALS: BP 134/79
== END 2018-04-17 12:50 | disposition home or self-care (01) ==
LOC: ER 10:19
DX: L03.113 Cellulitis of right upper limb (principal); R74.8 Abnormal levels of other serum enzymes; T63.461A Toxic effect of venom of wasps, accidental (unintentional), initial encounter; M79.601 Pain in right arm; W06.XXXA Fall from bed, initial encounter; F17.200 Nicotine dependence, unspecified, uncomplicated
CPT/HCPCS: 99284; 96361; 96375; 96365; 96366; 36415; 87040; 82550; 85025; 85652; 86140; 80053; 85379; 83605; 93971; 93931; 73090; 73030; 73201; J2930; J1885; J1170; J0696

== ENCOUNTER 2018-09-04 11:36 | Emergency (ER) | payer OTHER ==
[2018-09-04 12:00] VITALS: BP 127/81
[2018-09-04] MEDS ORDERED: DEXAMETHASONE SOD PHOS INJ 10 MG/1 ML VIAL IM ONE (12:14)
[2018-09-04] MEDS ORDERED: KETOROLAC TROMETHAMINE 60 MG/2 ML SDV IM ONE (12:14)
[2018-09-04] MEDS ORDERED: LIDOCAINE 5% (700 MG) TRANSDERMAL ADH..PATCH TP ONE (12:15)
--- NOTE | 2018-09-04 12:20 | ER Document Report ---
HPI - HPI Time Seen by Provider: 09/04/18 12:02 Pain Level: 5 Notes: Patient is a 38-year-old male who presents to the emergency department complaining of chronic low back pain. He states he had a back injury approximately 1 year ago. 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 Patient reports he also has to sleep in his truck while he is working so he is unable to get a comfortable position. Patient denies any numbness or tingling to either of his lower extremities, denies any loss of bowels, denies any bladder retention. - CONSTITUTIONAL Constitutional: DENIES: Fever, Chills Past Medical History - General Information source: Patient - Social History Smoking Status: Current Every Day Smoker Frequency of alcohol use: Heavy Drug Abuse: None Family History: Reviewed & Not Pertinent Patient has suicidal ideation: No Patient has homicidal ideation: No Renal/ Medical History: Denies: Hx Peritoneal Dialysis Psychiatric Medical History: Reports: Hx Depression Surgical Hx: Negative - Immunizations Immunizations up to date: Yes Hx Diphtheria, Pertussis, Tetanus Vaccination: Yes Vertical Provider Document - CONSTITUTIONAL Notes: PHYSICAL EXAMINATION: GENERAL: Well-appearing, well-nourished and in no acute distress. HEAD: Atraumatic, normocephalic. EYES: Pupils equal round extraocular movements intact, conjunctiva are normal. ENT: Nares patent NECK: Normal range of motion LUNGS: No respiratory distress Musculoskeletal: Normal range of motion, tenderness to palpation to bilateral lumbar paraspinous muscles. No vertebral tenderness. NEUROLOGICAL: Normal speech, normal gait. PSYCH: Normal mood, normal affect. SKIN: Warm, Dry, normal turgor, no rashes or lesions noted. - INFECTION CONTROL TRAVEL OUTSIDE OF THE [place] IN LAST 30 DAYS: No Course - Re-evaluation Re-evalutation: Patient's physical examination as well as history are most consistent with musculoskeletal strain. Patient has no red flag signs such as saddle anesthesia, urinary retention or bowel incontinence. Patient will be treated for musculoskeletal pain and discharged home. Follow-up with primary care. - Vital Signs Vital signs: Temp Pulse Resp BP Pulse Ox 98.3 F 93 18 127/81 H 96 09/04/18 11:57 09/04/18 11:57 09/04/18 11:57 09/04/18 11:57 09/04/18 11:57 Discharge - Discharge Clinical Impression: Low back pain Qualifiers: Chronicity: acute Back pain laterality: unspecified Sciatica presence: with sciatica Sciatica laterality: sciatica laterality unspecified Qualified Code(s): M54.40 - Lumbago with sciatica, unspecified side Condition: Stable Disposition: HOME, SELF-CARE Additional Instructions: You have been seen in the Emergency Department (ED) today for back pain. Your workup and exam have not shown any acute abnormalities and you are likely suffering from muscle strain or possible problems with your discs, but there is no treatment that will fix your symptoms at this time. Please take the naproxen that has been prescribed as directed. You should also purchase a local lidocaine cream such as "aspercreme with lidocaine" and use per bottle instructions to the affected area. Apply heat to the area as often as you are able. Continue to keep active and avoid prolonged periods of bed rest. Please follow up with your doctor as soon as possible regarding today's ED visit and your back pain. Return to the ED for worsening back pain, fever, weakness or numbness of either leg, or if you develop either (1) an inability to urinate or have bowel movements, or (2) loss of your ability to control your bathroom functions (if you start having "accidents"), or if you develop other new symptoms that concern you.concern you. Please make sure you discuss your back pain with [facility] provider when you see them later on this week. They may be able to refer you to either physical therapy or schedule an MRI for you. Forms: Return to Work Referrals: ANA M BOJORQUEZ MD [ACTIVE STAFF] - Follow up as needed
== END 2018-09-04 12:33 | disposition home or self-care (01) ==
LOC: ER 11:36
DX: M54.40 Lumbago with sciatica, unspecified side (principal); F17.200 Nicotine dependence, unspecified, uncomplicated
CPT/HCPCS: 99283; 96372; J1885; J1100

== ENCOUNTER 2018-09-27 10:23 | Emergency (ER) | payer OTHER ==
[2018-09-27 10:31] VITALS: BP 146/87
[2018-09-27] MEDS ORDERED: DEXAMETHASONE SOD PHOS INJ 10 MG/1 ML VIAL IM ONE (10:48)
[2018-09-27] MEDS ORDERED: LIDOCAINE 5% (700 MG) TRANSDERMAL ADH..PATCH TP ONE (10:48)
[2018-09-27] MEDS ORDERED: KETOROLAC TROMETHAMINE 60 MG/2 ML SDV IM ONE (10:48)
--- NOTE | 2018-09-27 10:54 | ER Document Report ---
HPI - HPI Time Seen by Provider: 09/27/18 10:33 Pain Level: 2 Notes: Patient is a 38-year-old male with who presents to the ED complaining of acute on chronic low back pain. 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 Patient was seen earlier this month and [facility] and was given prednisone and was told they need to see physical therapy. Patient states that bending twisting of the trunk make his pain worse. Patient states that the pain does occasionally radiate into his legs. Patient states that he was standing up the other day and pain became severe enough for him to fall. Patient states that that does not happen regularly and has been able to ambulate without significant difficulty since then. He is eating and drinking without any difficulties. He is urinating normally and having normal bowel movements. He has not had any injections or procedures to his lower back. Denies any IV drug abuse. No other concerns or complaints. Denies any headache, fever, head injury, neck pain, changes in vision/speech/ mentation/hearing, URI, sore throat, chest pain, palpitations, syncope, cough, shortness of breath, wheeze, dyspnea, abdominal pain, nausea/vomiting/diarrhea, urinary retention, dysuria, hematuria, loss of control of bowel or bladder, numbness/tingling, saddle anesthesia, muscle paralysis/weakness, or rash. - ROS Systems Reviewed and Negative: Yes All other systems reviewed and negative Past Medical History - Social History Smoking Status: Never Smoker Family History: Reviewed & Not Pertinent Renal/ Medical History: Denies: Hx Peritoneal Dialysis Psychiatric Medical History: Reports: Hx Depression - Immunizations Immunizations up to date: Yes Hx Diphtheria, Pertussis, Tetanus Vaccination: Yes Vertical Provider Document - CONSTITUTIONAL Agree With Documented VS: Yes Notes: PHYSICAL EXAMINATION: GENERAL: Well-appearing, well-nourished and in no acute distress. LUNGS: Breath sounds clear to auscultation bilaterally and equal. No wheezes rales or rhonchi. HEART: Regular rate and rhythm without murmurs, rubs, gallops. ABDOMEN: Soft, nontender, nondistended abdomen. No guarding, no rebound. No masses appreciated. Normal bowel sounds present. No CVA tenderness bilaterally. No pulsatile mass. Rectal tone intact. Musculoskeletal: LE's b/l: FROM to passive/active. Strength 5+/5. No deficits noted. No bony tenderness of extremities. Back: FROM to passive/active. Strength 5+/5. No vertebral point tenderness, stepoffs, or deformities. No other bony tenderness, erythema, swelling, or ecchymosis. SLR negative b/l. Mild spasming. No SI jt tenderness. No foot drop Extremities: No cyanosis, clubbing, or edema b/l. Peripheral pulses 2+. Capillary refill less than 2 seconds. NEUROLOGICAL: Normal speech, normal gait. Normal sensory, motor exams. Reflexes 2+ b/l. PSYCH: Normal mood, normal affect. SKIN: Warm, Dry, normal turgor, no rashes or lesions noted. - INFECTION CONTROL TRAVEL OUTSIDE OF THE [place] IN LAST 30 DAYS: No Course - Re-evaluation Re-evalutation: 09/27/18 10:54 I did review imaging with Dr. Haas who recommend an XR and no CT/MRI. 09/27/18 11:59 Patient is an afebrile, well-hydrated, 38-year-old male who presents to the ED with acute on chronic low back pain. Vitals are acceptable. PE is otherwise unremarkable for any focal neurological deficits. X-ray was unremarkable for any acute pathology aside from mild lower facet arthropathy. Patient was given Decadron, Toradol, and Lidoderm patch. He has no significant tachycardia, tachypnea, or hypoxia. He is nontoxic-appearing and is tolerating p.o. without difficulties. There are no signs of infection. No other red flag symptoms noted. No other labs or imaging warranted at this time based on H&P. Low suspicion for any meningitis, fracture, expanding/ruptured AAA, cauda equina syndrome, epidural mass lesion/abscess, herniated disc causing severe spinal stenosis, or other systemic infection at this time. Patient is aware that his condition can change from initial presentation and that he needs monitor symptoms closely for any acute changes. I will send him home with a prescription for baclofen and naproxen. Conservative measures otherwise for symptoms. Recheck with your PCM in 3-5 days. Consider consult with orthopedic/physical therapy. Return to the ED with any worsening/concerning symptoms otherwise as reviewed discharge. Patient is in agreement. - Vital Signs Vital signs: Temp Pulse Resp BP Pulse Ox 98.6 F 64 16 146/87 H 100 09/27/18 10:28 09/27/18 10:28 09/27/18 10:28 09/27/18 10:28 09/27/18 10:28 Discharge - Discharge Clinical Impression: Acute exacerbation of chronic low back pain Condition: Stable Disposition: HOME, SELF-CARE Instructions: Low Back Pain ([facility]), Stretching Exercises for the Back ([facility]), Muscle Relaxers ([facility]) Additional Instructions: Rest, Ice Tylenol/ibuprofen as needed Light stretches daily Strength exercises as able Moist heat and massage may help F/u with your PCP in 3-5 days for a recheck Consider consult(s) with Orthopedics/physical therapy for ongoing/worsening symptoms Return to the ED with any worsening symptoms and/or development of fever, headache, chest pain, palpitations, syncope, shortness of breath, trouble breathing, abdominal pain, n/v/d, blood in stool/urine, loss of control of bowel/bladder, urinary retention, muscle weakness/paralysis, saddle anesthesia, numbness/tingling, or other worsening symptoms that are concerning to you. Prescriptions: Baclofen [Baclofen 10 mg Tablet] 5 - 10 mg PO BID PRN #10 tablet PRN Reason: Naproxen 500 mg PO BID #10 tablet Forms: Elevated Blood Pressure, Return to Work Referrals: DESIRAE MARLEY DO [NO LOCAL MD] - Follow up as needed [facility] [Provider Group] - Follow up as needed
--- NOTE | 2018-09-27 11:49 | RADIOLOGY REPORT (SQ) ---
EXAM DESCRIPTION: L SPINE WHOLE COMPLETED DATE/TIME: 09/27/2018 11:25 am REASON FOR STUDY: low back pain no known injury COMPARISON: 12/11/2017 NUMBER OF VIEWS: Five views including obliques. TECHNIQUE: AP, lateral, oblique, and sacral radiographic images acquired of the lumbar spine. LIMITATIONS: None. FINDINGS: MINERALIZATION: Normal. SEGMENTATION: Normal. No transitional anatomy. ALIGNMENT: Normal. VERTEBRAE: Maintained height. No fracture or worrisome bone lesion. DISCS: Preserved height. No significant osteophytes or end plate irregularity. POSTERIOR ELEMENTS: Pedicles and facets are intact. No pars defect or posterior arch defects. Mild bilateral facet arthropathy at L4-5 and L5-S1 HARDWARE: None in the spine. PARASPINAL SOFT TISSUES: Normal. PELVIS: SI joints intact. OTHER: No other significant finding. IMPRESSION: Mild lower lumbar facet arthropathy TECHNICAL DOCUMENTATION: JOB ID: [id number] [employer]- All Rights Reserved Reading location - IP/workstation name: [email or web address]
== END 2018-09-27 12:10 | disposition home or self-care (01) ==
LOC: ER 10:23
DX: G89.29 Other chronic pain (principal); M54.5 Low back pain; Y99.0 Civilian activity done for income or pay
CPT/HCPCS: 99283; 96372; 72110; J1885; J1100